=== PATIENT | male | born 1960 | race Caucasian/White ===

== ENCOUNTER 2018-05-26 13:44 | Emergency (ER) | payer OTHER ==
[~2018-05-26] VITALS: Ht 182.9 cm; Wt 79.4 kg
[2018-05-26 14:09] LABS: ABSOLUTE LYMPHOCYTES 1.8 thou/uL (0.8-5.3); ABSOLUTE MONOCYTES 0.5 thou/uL (0.0-1.2); ABSOLUTE NEUTROPHILS 4.4 thou/uL (1.6-8.1); BASOPHILS 0.6 %; EOSINOPHILS 0.6 %; HEMATOCRIT 41.6 % (42.0-52.0); HEMOGLOBIN 14.4 gm/dL (14.0-18.0); LYMPHOCYTES 26.8 %; MCH 29.4 pg (26.0-34.0); MCHC 34.7 g/dL (28.0-37.0); MCV 84.7 fL (80.0-100.0); MONOCYTES 7.7 %; MPV 8.2 fl. (7.2-11.1); NUCLEATED RBCS 0 /100WBC; PLATELET COUNT* 190 thou/uL (150-400); POLYS 64.3 %; RBC 4.91 mil/uL (4.50-6.00); RDW-CV 14.1 % (10.5-14.5); WBC 6.8 thou/uL (4.0-11.0)
[2018-05-26 14:18] LABS: ANION GAP 4 mmol/L (7-16); BUN 14 mg/dL (7-18); CALCIUM 8.3 mg/dL (8.5-10.1); CHLORIDE 105 mmol/L (98-107); CO2 30 mmol/L (21-32); GLUCOSE 109 mg/dL (70-99); POTASSIUM 4.1 mmol/L (3.5-5.1); SODIUM 139 mmol/L (136-145)
[2018-05-26 14:29] LABS: ALBUMIN 3.5 g/dL (3.4-5.0); ALKALINE PHOSPHATASE 77 U/L (46-116); LIPASE 128 U/L (73-393); NT-PRO BRAIN NAT PEPTIDE 32 pg/mL (<300); SGOT 20 U/L (15-37); SGPT 29 U/L (30-65); TOTAL BILIRUBIN 0.4 mg/dL (<0.1-1.0); TOTAL PROTEIN 6.8 g/dL (6.4-8.2); TROPONIN-I LEVEL <0.06 ng/mL (<0.06)
[2018-05-26] MEDS ORDERED: NAPROSYN500 M1 PO (14:36)
[2018-05-26 14:43] VITALS: BP 131/74
--- NOTE | 2018-05-26 14:56 | EKG ---
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
== END 2018-05-26 14:44 | disposition home or self-care (01) ==
LOC: M.ERS 13:44
PROVIDERS: Emergency Medicine
DX: R07.89 Other chest pain (principal)

== ENCOUNTER 2020-02-08 13:34 | Emergency (ER) | payer OTHER ==
[~2020-02-08] VITALS: Ht 182.9 cm; Wt 77.1 kg
[~2020-02-08 13:34] MED LIST: NAPROSYN500 M1 PO
[2020-02-08] MEDS ORDERED: CIPRO250 M2 PO (13:44)
[2020-02-08] MEDS ORDERED: FLAGYL 250 MG250 MG PO (13:45)
[2020-02-08 14:01] LABS: ABSOLUTE BASOPHILS 0.1 thou/uL (0.0-0.2); ABSOLUTE EOSINOPHILS 0.1 thou/uL (0.0-0.7); ABSOLUTE LYMPHOCYTES 1.8 thou/uL (0.8-5.3); ABSOLUTE MONOCYTES 0.7 thou/uL (0.0-1.2); BASOPHILS 1.2 %; EOSINOPHILS 1.1 %; LYMPHOCYTES 20.5 %; MCH 31.5 pg (26.0-34.0); MCHC 35.6 g/dL (28.0-37.0); MCV 88.5 fL (80.0-100.0); MONOCYTES 8.1 %; MPV 8.8 fl. (7.2-11.1); NUCLEATED RBCS 0 /100WBC; PLATELET COUNT* 223 thou/uL (150-400); POLYS 69.1 %; RBC 5.08 mil/uL (4.50-6.00); RDW-CV 12.1 % (10.5-14.5); WBC 8.6 thou/uL (4.0-11.0)
[2020-02-08 14:05] LABS: CALCIUM 8.8 mg/dL (8.5-10.1); POTASSIUM 4.1 mmol/L (3.5-5.1)
[2020-02-08 14:06] LABS: URINE BILIRUBIN NEGATIVE (Negative); URINE BLOOD NEGATIVE (Negative); URINE CLARITY CLEAR; URINE COLOR YELLOW; URINE GLUCOSE-RANDOM NEGATIVE (Negative); URINE KETONES NEGATIVE (Negative); URINE LEUKOCYTES-REFLEX NEGATIVE (Negative); URINE NITRITE-REFLEX NEGATIVE (Negative); URINE PROTEIN NEGATIVE (Negative); URINE UROBILINOGEN 0.2 E.U./dl (0.2-1.0)
[2020-02-08 14:10] LABS: ALBUMIN 3.8 g/dL (3.4-5.0); TOTAL BILIRUBIN 0.4 mg/dL (<0.1-1.0); TOTAL PROTEIN 7.2 g/dL (6.4-8.2)
[2020-02-08] MEDS ORDERED: NORCO 5-325 TA1 EAC1 PO (14:55)
[2020-02-08 15:02] VITALS: BP 145/96
--- NOTE | 2020-02-08 15:35 | EKG ---
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 : 1960 Requested By: Cliff Lantigua Order Number: [id number] MD: Alejandro Durant Measurements Intervals [place] Rate: 74 P: 58 WA: 175 QRS: 22 QRSD: 86 T: 54 QT: 356 QTc: 395 Interpretive Statements Sinus rhythm Baseline wander in lead(s) V1 Compared to ECG 05/26/2018 13:50:07 No significant changes Electronically Signed On 02-08-2020 15:33:49 CDT by Alejandro Durant [email or web address] <ELECTRONICALLY SIGNED> By: Alejandro Durant MD, [facility] 02/08/20 1533 1349 1349 Alejandro Durant MD, [facility] /EPI
== END 2020-02-08 15:02 | disposition home or self-care (01) ==
LOC: M.ERS 13:34
PROVIDERS: Family Medicine
DX: R10.32 Left lower quadrant pain (principal); K58.9 Irritable bowel syndrome, unspecified; Z87.891 Personal history of nicotine dependence

== ENCOUNTER → 2020-08-22 | Outpatient (CLI) | payer OTHER ==
[~2020-08-22] MED LIST changes: +CIPRO250 M2 PO; +FLAGYL 250 MG250 MG PO; +NORCO 5-325 TA1 EAC1 PO
[2020-08-22 14:53] LABS: ABSOLUTE BASOPHILS 0.1 thou/uL (0.0-0.2); ABSOLUTE LYMPHOCYTES 1.5 thou/uL (0.8-5.3); ABSOLUTE MONOCYTES 0.6 thou/uL (0.0-1.2); ABSOLUTE NEUTROPHILS 5.8 thou/uL (1.6-8.1); BASOPHILS 0.8 %; EOSINOPHILS 0.2 %; HEMATOCRIT 46.2 % (42.0-52.0); HEMOGLOBIN 15.9 gm/dL (14.0-18.0); LYMPHOCYTES 18.9 %; MCH 31.1 pg (26.0-34.0); MCHC 34.4 g/dL (28.0-37.0); MCV 90.3 fL (80.0-100.0); MONOCYTES 7.4 %; MPV 8.3 fl. (7.2-11.1); NUCLEATED RBCS 0 /100WBC; PLATELET COUNT* 211 thou/uL (150-400); POLYS 72.7 %; RBC 5.11 mil/uL (4.50-6.00)
[2020-08-22 15:08] LABS: ALBUMIN 4.2 g/dL (3.4-5.0); ALKALINE PHOSPHATASE 81 U/L (46-116); ANION GAP 7 mmol/L (7-16); BUN 14 mg/dL (7-18); CALCIUM 8.7 mg/dL (8.5-10.1); CHLORIDE 103 mmol/L (98-107); CO2 30 mmol/L (21-32); CREATININE 0.9 mg/dL (0.6-1.3); GLUCOSE 97 mg/dL (70-99); POTASSIUM 4.6 mmol/L (3.5-5.1); SGOT 25 U/L (15-37); SGPT 29 U/L (30-65); SODIUM 140 mmol/L (136-145); TOTAL BILIRUBIN 0.7 mg/dL (<0.1-1.0); TOTAL PROTEIN 7.7 g/dL (6.4-8.2)
[2020-08-22 15:22] LABS: TROPONIN-I LEVEL <0.06 ng/mL (<0.06)
== END ==
LOC: M.LAB 14:23
PROVIDERS: ATTEND Internal Medicine
DX: R42 Dizziness and giddiness (principal); R06.02 Shortness of breath

== ENCOUNTER 2020-08-29 15:49 | Inpatient (IN) | payer OTHER ==
[~2020-08-29] VITALS: Ht 193 cm; Wt 81.9 kg
--- NOTE | ~2020-08-29 | CON ---
[address] [address] CONSULTATION Name: LORENA MONTES Room: [address] IN .R.#: [id number] Admission: 08/29/20 Attend Phys: Raquel Mtz MD Discharge: Date of : 64 Report #: [id number] THIS REPORT FOR: //name// cc: Aime Ruiz Meng, Zhao ~ DATE OF SERVICE: 08/30/2020 Please note at the time of this dictation, the patient was seen and physically examined by myself. REASON FOR CONSULTATION: Diverticulitis with microperforation. HISTORY OF PRESENT ILLNESS: This is a 59-year-old male who presented to the Emergency Room with having severe abdominal pain. He states he first had some discomfort about 2 days ago with some distention and then he had 3 additional episodes, he states in the past year of diverticulitis in which he was treated by his PCP at that particular time. He states today symptoms were significantly worse, prompting him to come in for further treatment. He denied any fever or chills; however, he did have some emesis and some nausea on the day of admission. He is feeling much better today and just doing ice chips, but still having significant amount of discomfort at this time. The patient states he had a colonoscopy done last year, which was essentially normal. ALLERGIES: No known drug allergies. MEDICATIONS FROM HOME: None. PAST MEDICAL HISTORY: History of diverticulitis in the past, history of gallstones, irritable bowel syndrome, and herniated disk in his neck. PAST SURGICAL HISTORY: Cholecystectomy. FAMILY HISTORY: Negative for any GI or female cancers. SOCIAL HISTORY: Quit smoking a year ago. Alcohol is only socially. Denies any illegal drug use. REVIEW OF SYSTEMS: Twelve-point review of systems is essentially negative except what is mentioned in the HPI. PHYSICAL EXAMINATION HEART: Regular rate and rhythm. LUNGS: Clear. ABDOMEN: Soft, positive bowel sounds in all 4 [place] [address] CONSULTATION Name: LORENA MONTES Room: [address] IN [facility]#: [id number] Admission: 08/29/20 Attend Phys: Raquel Mtz MD Discharge: Date of : 64 Report #: [id number] in the right lower and some in the left lower quadrant to palpation. LABORATORY DATA: Hemoglobin on admission was 15.1, he is down to 13.3; white count was 11.9 on admission, he is down to 8.7; platelets 148. GFR is 69. On admission, his LFTs were essentially normal and today total bili is 3.4, alk phos is 89, ALT is 103 and AST is 144. Lipase is normal at 84. PT is 10. INR is 0.9. Acute hepatitis panel is pending. CT of the abdomen and pelvis shows previous cholecystectomy. Liver appears normal. Spleen is normal. Pancreas is normal. Bowel shows diverticulosis of the descending and sigmoid colon with moderate circumferential wall thickening with pericolonic fat stranding of the upper and mid sigmoid colon compatible with diverticulitis with a few droplets of adjacent free air noted in the pelvis with microperforation. IMPRESSION: 1. Diverticulitis with microperforation. 2. Elevated LFTs. 3. Abdominal pain. 4. Nausea, vomiting. PLAN: 1. Obtain an abdominal ultrasound for elevation of LFTs. 2. Continue his antibiotics and fluids. 3. Recheck labs in the a.m., PT/INR and LFTs. 4. Acute hepatitis panel is pending. 5. We will consult dietary for low residue diet. 6. The patient will need an office visit in [address] at that time to assessment of resolution of his diverticulitis before scheduling him for a colonoscopy for inking. Thank you for allowing us to participate in this patient's care. Please do not hesitate to call with any questions in regard to this consult. By: 1147 1224Puneet Sierra MD /cris
[2020-08-29 15:54] VITALS: BP 144/101
[2020-08-29 16:14] LABS: ABSOLUTE BASOPHILS 0.1 thou/uL (0.0-0.2); ABSOLUTE LYMPHOCYTES 1.3 thou/uL (0.8-5.3); ABSOLUTE MONOCYTES 0.8 thou/uL (0.0-1.2); ABSOLUTE NEUTROPHILS 9.3 thou/uL (1.6-8.1); BASOPHILS 0.6 %; EOSINOPHILS 0.3 %; HEMATOCRIT 43.7 % (42.0-52.0); HEMOGLOBIN 15.1 gm/dL (14.0-18.0); LYMPHOCYTES 11.5 %; MCH 30.7 pg (26.0-34.0); MCHC 34.5 g/dL (28.0-37.0); MCV 88.8 fL (80.0-100.0); MONOCYTES 6.8 %; MPV 8.7 fl. (7.2-11.1); NUCLEATED RBCS 0 /100WBC; PLATELET COUNT* 179 thou/uL (150-400); POLYS 80.8 %; RBC 4.92 mil/uL (4.50-6.00); RDW-CV 12.6 % (10.5-14.5); WBC 11.5 thou/uL (4.0-11.0)
[2020-08-29 16:22] LABS: CALCIUM 8.7 mg/dL (8.5-10.1); CREATININE 1.1 mg/dL (0.6-1.3); POTASSIUM 3.5 mmol/L (3.5-5.1)
[2020-08-29 16:24] LABS: INR 0.9
[2020-08-29 16:27] LABS: ALBUMIN 3.7 g/dL (3.4-5.0); TOTAL BILIRUBIN 0.6 mg/dL (<0.1-1.0); TOTAL PROTEIN 7.4 g/dL (6.4-8.2)
[2020-08-29 20:25] VITALS: BP 125/68
[2020-08-29 20:30] VITALS: BP 128/80
[2020-08-29 21:07] LABS: URINE BILIRUBIN NEGATIVE (Negative); URINE BLOOD NEGATIVE (Negative); URINE CLARITY CLEAR; URINE COLOR YELLOW; URINE GLUCOSE-RANDOM NEGATIVE (Negative); URINE KETONES NEGATIVE (Negative); URINE LEUKOCYTES-REFLEX NEGATIVE (Negative); URINE NITRITE-REFLEX NEGATIVE (Negative); URINE PROTEIN NEGATIVE (Negative); URINE UROBILINOGEN 0.2 E.U./dl (0.2-1.0)
[2020-08-30] VITALS: BP 129/74
[2020-08-30 04:00] VITALS: BP 101/50
[2020-08-30 04:44] LABS: HEMATOCRIT 38.6 % (42.0-52.0); HEMOGLOBIN 13.4 gm/dL (14.0-18.0); MCH 30.8 pg (26.0-34.0); MCHC 34.8 g/dL (28.0-37.0); MCV 88.6 fL (80.0-100.0); MPV 9.2 fl. (7.2-11.1); RBC 4.35 mil/uL (4.50-6.00); RDW-CV 12.7 % (10.5-14.5); WBC 8.7 thou/uL (4.0-11.0)
[2020-08-30 04:47] LABS: ABSOLUTE LYMPHOCYTES 1.3 thou/uL (0.8-5.3); ABSOLUTE MONOCYTES 0.6 thou/uL (0.0-1.2); ABSOLUTE NEUTROPHILS 6.7 thou/uL (1.6-8.1); BASOPHILS 0.3 %; EOSINOPHILS 0.2 %; HEMATOCRIT 38.4 % (42.0-52.0); HEMOGLOBIN 13.3 gm/dL (14.0-18.0); LYMPHOCYTES 15.2 %; MCH 30.7 pg (26.0-34.0); MCHC 34.7 g/dL (28.0-37.0); MCV 88.6 fL (80.0-100.0); MONOCYTES 6.9 %; MPV 8.9 fl. (7.2-11.1); NUCLEATED RBCS 0 /100WBC; PLATELET COUNT* 148 thou/uL (150-400); POLYS 77.4 %; RBC 4.33 mil/uL (4.50-6.00); WBC 8.7 thou/uL (4.0-11.0)
[2020-08-30 05:01] LABS: ALBUMIN 2.9 g/dL (3.4-5.0); CALCIUM 8.3 mg/dL (8.5-10.1); CREATININE 1.1 mg/dL (0.6-1.3); POTASSIUM 3.6 mmol/L (3.5-5.1); TOTAL BILIRUBIN 3.4 mg/dL (<0.1-1.0); TOTAL PROTEIN 5.9 g/dL (6.4-8.2)
--- NOTE | 2020-08-30 09:10 | EKG ---
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: [facility] : 1960 Requested By: Cliff Lantigua Order Number: [id number] MD: Chase Saucedo Measurements Intervals [place] Rate: 84 P: 40 MO: 153 QRS: 40 QRSD: 92 T: 56 QT: 362 QTc: 428 Interpretive Statements Sinus rhythm Compared to ECG 02/08/2020 13:49:45 No significant changes Electronically Signed On 08-30-2020 9:09:47 ATHLETIC INSTRUCTOR by Chase Saucedo [email or web address] <ELECTRONICALLY SIGNED> By: Chase Saucedo MD, [facility] 08/30/20 0909 1603 1603 Chase Saucedo MD, [facility] /EPI
[2020-08-30 12:00] VITALS: BP 116/71
[2020-08-30 12:55] LABS: INR 1.1; PROTIME 11.3 Seconds (9.20-11.50)
[2020-08-30 12:57] LABS: ALBUMIN 2.7 g/dL (3.4-5.0); CALCIUM 7.9 mg/dL (8.5-10.1); CREATININE 0.9 mg/dL (0.6-1.3); POTASSIUM 3.6 mmol/L (3.5-5.1); TOTAL BILIRUBIN 3.9 mg/dL (<0.1-1.0); TOTAL PROTEIN 5.9 g/dL (6.4-8.2)
[2020-08-30 20:00] VITALS: BP 134/81
[2020-08-31 02:06] LABS: HEPATITIS B SURFACE AG Negative (Negative)
[2020-08-31 04:00] VITALS: BP 139/79
[2020-08-31 04:54] LABS: HEMATOCRIT 38.4 % (42.0-52.0); HEMOGLOBIN 13.2 gm/dL (14.0-18.0); MCH 30.9 pg (26.0-34.0); MCHC 34.3 g/dL (28.0-37.0); MCV 90.1 fL (80.0-100.0); MPV 9.6 fl. (7.2-11.1); RBC 4.26 mil/uL (4.50-6.00); RDW-CV 12.8 % (10.5-14.5); WBC 6.9 thou/uL (4.0-11.0)
[2020-08-31 05:09] LABS: ALBUMIN 2.8 g/dL (3.4-5.0); CREATININE 0.9 mg/dL (0.6-1.3); MAGNESIUM 1.7 mg/dL (1.8-2.4); POTASSIUM 3.6 mmol/L (3.5-5.1); TOTAL BILIRUBIN 4.7 mg/dL (<0.1-1.0); TOTAL PROTEIN 6.3 g/dL (6.4-8.2)
[2020-08-31 07:15] VITALS: BP 132/70
[2020-08-31 16:00] VITALS: BP 142/87
[2020-09-01 04:00] VITALS: BP 130/81
[2020-09-01 04:04] VITALS: BP 117/69
[2020-09-01 04:20] LABS: ABSOLUTE EOSINOPHILS 0.2 thou/uL (0.0-0.7); ABSOLUTE LYMPHOCYTES 1.1 thou/uL (0.8-5.3); ABSOLUTE MONOCYTES 0.7 thou/uL (0.0-1.2); ABSOLUTE NEUTROPHILS 5.5 thou/uL (1.6-8.1); BASOPHILS 0.3 %; HEMATOCRIT 37.3 % (42.0-52.0); LYMPHOCYTES 14.6 %; MCH 31.1 pg (26.0-34.0); MCHC 34.9 g/dL (28.0-37.0); MCV 89.2 fL (80.0-100.0); MPV 8.9 fl. (7.2-11.1); NUCLEATED RBCS 0 /100WBC; PLATELET COUNT* 159 thou/uL (150-400); POLYS 74.1 %; RBC 4.18 mil/uL (4.50-6.00); RDW-CV 12.6 % (10.5-14.5); WBC 7.4 thou/uL (4.0-11.0)
[2020-09-01 04:38] LABS: ALBUMIN 2.6 g/dL (3.4-5.0); CALCIUM 8.6 mg/dL (8.5-10.1); CREATININE 0.8 mg/dL (0.6-1.3); MAGNESIUM 1.8 mg/dL (1.8-2.4); PHOSPHORUS* 2.5 mg/dL (2.5-4.9); POTASSIUM 3.6 mmol/L (3.5-5.1)
[2020-09-01 08:00] VITALS: BP 155/86
[2020-09-01 12:57] VITALS: BP 155/86
== END 2020-09-01 13:05 | disposition home or self-care (01) | DRG 871 ==
LOC: M.ERS 15:49 → M.2W 17:25 → M.TBA-ER 17:25 → M.2W 20:41
PROVIDERS: Family Medicine; Nurse Practitioner Adult Health; Surgery; ADMIT Internal Medicine; ATTEND Internal Medicine
DX: A41.9 Sepsis, unspecified organism (principal); K83.1 Obstruction of bile duct; K57.20 Diverticulitis of large intestine with perforation and abscess without bleeding; E44.1 Mild protein-calorie malnutrition; K58.9 Irritable bowel syndrome, unspecified; E80.6 Other disorders of bilirubin metabolism; Z20.828 Contact with and (suspected) exposure to other viral communicable diseases; Z68.22 Body mass index [BMI] 22.0-22.9, adult; Z79.899 Other long term (current) drug therapy; Z90.49 Acquired absence of other specified parts of digestive tract; Z87.891 Personal history of nicotine dependence

== ENCOUNTER 2020-09-08 13:47 | Emergency (ER) | payer OTHER ==
[~2020-09-08] VITALS: Ht 182.9 cm; Wt 77.6 kg
[2020-09-08] MEDS ORDERED: AUGMENTIN 875-1 EACH PO ×2 (14:22→17:26)
[2020-09-08 14:48] LABS: ABSOLUTE BASOPHILS 0.1 thou/uL (0.0-0.2); ABSOLUTE EOSINOPHILS 0.3 thou/uL (0.0-0.7); ABSOLUTE LYMPHOCYTES 1.4 thou/uL (0.8-5.3); ABSOLUTE NEUTROPHILS 8.3 thou/uL (1.6-8.1); BASOPHILS 0.6 %; EOSINOPHILS 2.7 %; HEMATOCRIT 45.1 % (42.0-52.0); HEMOGLOBIN 15.5 gm/dL (14.0-18.0); LYMPHOCYTES 12.5 %; MCH 30.6 pg (26.0-34.0); MCHC 34.4 g/dL (28.0-37.0); MCV 88.9 fL (80.0-100.0); MONOCYTES 8.8 %; MPV 8.1 fl. (7.2-11.1); NUCLEATED RBCS 0 /100WBC; PLATELET COUNT* 327 thou/uL (150-400); POLYS 75.4 %; RBC 5.08 mil/uL (4.50-6.00); RDW-CV 12.4 % (10.5-14.5)
[2020-09-08 14:55] LABS: CALCIUM 9.3 mg/dL (8.5-10.1); POTASSIUM 3.9 mmol/L (3.5-5.1)
[2020-09-08 14:59] LABS: ALBUMIN 3.5 g/dL (3.4-5.0); TOTAL BILIRUBIN 0.6 mg/dL (<0.1-1.0)
[2020-09-08 16:37] LABS: URINE BILIRUBIN NEGATIVE (Negative); URINE BLOOD NEGATIVE (Negative); URINE CLARITY CLEAR; URINE COLOR YELLOW; URINE GLUCOSE-RANDOM NEGATIVE (Negative); URINE KETONES NEGATIVE (Negative); URINE LEUKOCYTES-REFLEX NEGATIVE (Negative); URINE NITRITE-REFLEX NEGATIVE (Negative); URINE PROTEIN NEGATIVE (Negative); URINE SPECIFIC GRAVITY <= 1.005 (1.005-1.030); URINE UROBILINOGEN 0.2 E.U./dl (0.2-1.0)
[2020-09-08] MEDS ORDERED: PERCOCET 5-3251 EACH PO (16:37)
[2020-09-08 18:10] VITALS: BP 135/73
--- NOTE | 2020-09-11 15:02 | EKG ---
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1960 Requested By: Cliff Lantigua Order Number: [id number] MD: Alejandro Durant Measurements Intervals [place] Rate: 89 P: 73 ID: 160 QRS: 38 QRSD: 91 T: 59 QT: 356 QTc: 434 Interpretive Statements Sinus rhythm Compared to ECG 08/29/2020 16:03:37 No significant changes Electronically Signed On 09-11-2020 15:01:54 MATERIAL DAMAGE APPRAISER by Alejandro Durant [email or web address] <ELECTRONICALLY SIGNED> By: Alejandro Durant MD, [facility] 09/11/20 1501 1428 142 Alejandro Durant MD, [facility] /EPI
== END 2020-09-08 18:10 | disposition home or self-care (01) ==
LOC: M.ERS 13:47
PROVIDERS: Family Medicine
DX: K57.20 Diverticulitis of large intestine with perforation and abscess without bleeding (principal); Z20.828 Contact with and (suspected) exposure to other viral communicable diseases; K58.9 Irritable bowel syndrome, unspecified; Z87.891 Personal history of nicotine dependence

== ENCOUNTER → 2020-09-28 | Outpatient (CLI) | payer OTHER ==
[~2020-09-28] MED LIST changes: +AUGMENTIN 875-1 EACH PO; +PERCOCET 5-3251 EACH PO
== END ==
LOC: M.CT 09-27 15:00
PROVIDERS: ATTEND Nurse Practitioner Adult Health
DX: K57.92 Diverticulitis of intestine, part unspecified, without perforation or abscess without bleeding (principal); R19.5 Other fecal abnormalities; I70.0 Atherosclerosis of aorta

== ENCOUNTER 2021-01-22 14:14 | Emergency (ER) | payer OTHER ==
[~2021-01-22] VITALS: Ht 182.9 cm; Wt 77.1 kg
[2021-01-22 14:33] LABS: ABSOLUTE BASOPHILS 0.1 thou/uL (0.0-0.2); ABSOLUTE LYMPHOCYTES 2.1 thou/uL (0.8-5.3); ABSOLUTE MONOCYTES 0.8 thou/uL (0.0-1.2); ABSOLUTE NEUTROPHILS 6.5 thou/uL (1.6-8.1); BASOPHILS 0.7 %; EOSINOPHILS 0.2 %; HEMATOCRIT 43.9 % (42.0-52.0); HEMOGLOBIN 15.1 gm/dL (14.0-18.0); MCH 29.7 pg (26.0-34.0); MCHC 34.3 g/dL (28.0-37.0); MCV 86.5 fL (80.0-100.0); MONOCYTES 8.3 %; MPV 8.1 fl. (7.2-11.1); NUCLEATED RBCS 0 /100WBC; PLATELET COUNT* 197 thou/uL (150-400); POLYS 68.8 %; RBC 5.08 mil/uL (4.50-6.00); WBC 9.4 thou/uL (4.0-11.0)
[2021-01-22 14:45] LABS: CALCIUM 9.4 mg/dL (8.5-10.1); CREATININE 0.9 mg/dL (0.6-1.3); POTASSIUM 4.2 mmol/L (3.5-5.1)
[2021-01-22 14:48] LABS: APTT 28.2 Seconds (25.0-31.3); PROTIME 10.2 Seconds (9.20-11.50)
[2021-01-22 14:57] LABS: CK-MB MASS 0.6 ng/mL (<0.5-3.6); TOTAL BILIRUBIN 0.4 mg/dL (<0.1-1.0); TOTAL PROTEIN 7.4 g/dL (6.4-8.2)
[2021-01-22 15:25] VITALS: BP 142/82
--- NOTE | 2021-01-23 14:03 | EKG ---
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[place] : 1960 Requested By: Cliff Lantigua Order Number: [id number] MD: Chase Saucedo Measurements Intervals [place] Rate: 76 P: 68 NM: 171 QRS: 50 QRSD: 90 T: 68 QT: 364 QTc: 410 Interpretive Statements Sinus rhythm Baseline wander in lead(s) V6 Compared to ECG 09/08/2020 14:28:45 No significant changes Electronically Signed On 01-23-2021 14:03:46 CDT by Chase Saucedo [email or web address] <ELECTRONICALLY SIGNED> By: Chase Saucedo MD, [facility] 01/23/21 1403 1420 1420 Chase Saucedo MD, [facility] /EPI
== END 2021-01-22 15:25 | disposition home or self-care (01) ==
LOC: M.ERS 14:14
PROVIDERS: Family Medicine
DX: R07.89 Other chest pain (principal); K58.9 Irritable bowel syndrome, unspecified; Z87.891 Personal history of nicotine dependence

== ENCOUNTER 2021-04-04 05:52 | Inpatient (IN) | payer OTHER ==
[~2021-04-04] VITALS: Ht 180.3 cm; Wt 77.1 kg
--- NOTE | ~2021-04-04 | H ---
[address] [address] HISTORY AND PHYSICAL Name: LORENA MONTES Room: [address] IN .R.#: [id number] Admission: 04/04/21 Attend Phys: Jack Zelaya Discharge: 04/08/21 Date of : 64 Report #: [id number] THIS REPORT FOR: cc: Joseph Salomon MD, Meng MD [facility],Medical Records Staff ~ Please refer to the History and Physical performed in the physician's office. By: 1512Medical Records Staff KIMBERLEE /LISETH
[2021-04-04 06:15] VITALS: BP 141/86
[2021-04-04 06:43] LABS: HEMATOCRIT 41.8 % (42.0-52.0); HEMOGLOBIN 15.1 gm/dL (14.0-18.0); MCH 31.9 pg (26.0-34.0); MCHC 36.2 g/dL (28.0-37.0); MCV 88.2 fL (80.0-100.0); MPV 8.4 fl. (7.2-11.1); RBC 4.74 mil/uL (4.50-6.00); RDW-CV 12.5 % (10.5-14.5); WBC 7.9 thou/uL (4.0-11.0)
[2021-04-04 06:51] LABS: CALCIUM 8.7 mg/dL (8.5-10.1); CREATININE 0.9 mg/dL (0.6-1.3); POTASSIUM 3.9 mmol/L (3.5-5.1)
[2021-04-04 06:55] LABS: ALBUMIN 3.7 g/dL (3.4-5.0); TOTAL BILIRUBIN 1.1 mg/dL (<0.1-1.0); TOTAL PROTEIN 7.3 g/dL (6.4-8.2)
--- NOTE | 2021-04-04 09:25 | EKG ---
[place] [address] ELECTROCARDIOGRAM REPORT Name: LORENA MONTES Room: [place] [address] ADM IN M.R.#: [id number] Admission: 04/04/21 Attend Phys: Danilo Salinas Discharge: Date of : 64 Date of Service: 04/04/[address] Report #: [id number] THIS REPORT FOR: //name// [facility] Test Date: 2021-04-04 Test Time: 07:13:39 Pat Name: LORENA MONTES Department: Room: [place] [address] Gender: M Chief Strategy Officer: : 1960 Requested By: Danilo Salinas Order Number: [id number] Kenna MD: Chase Saucedo Measurements Intervals [place] Rate: 68 P: 51 ID: 178 QRS: 18 QRSD: 91 T: 51 QT: 403 QTc: 429 Interpretive Statements Sinus rhythm Compared to ECG 01/22/2021 14:20:28 No significant changes Electronically Signed On 04-04-2021 9:25:12 CDT by Chase Saucedo [email or web address] <ELECTRONICALLY SIGNED> By: Chase Saucedo MD, [facility] 04/04/21 0925 2 2 Chase Saucedo MD, [facility] /EPI
[2021-04-04 18:30] VITALS: BP 143/87
--- NOTE | 2021-04-04 19:33 | NUR ---
PATIENT ARRIVED FROM PACU AT 1830. PATIENT SETTLED TO ROOM. DAUGHTER AT BEDSIDE. PATIENT GIVEN FENTANYL PRIOR TO TRANSFER. SCHEDULED TORADOL GIVEN. PATIENT HAS ICE PACK TO ABDOMEN. LAP SITES APPROXIMATED WELL WITH DERMABOND. PATIENT HAS IV FLUIDS INFUSING ORDERED. FOY CATHETER IN PLACE, PATIENT DENIES ANY NEEDS AT THIS TIME. CALL LIGHT WITHIN REACH.
[2021-04-04 20:00] VITALS: BP 118/77
[2021-04-05] VITALS (7 sets, daily range): BP systolic 99–128; BP diastolic 49–72
--- NOTE | 2021-04-05 04:01 | NUR ---
PT A&O X 4. VSS ON 3L WITH CONTINUOUS PULSE OX MONITOR. PAIN MANAGED WITH MORPHINE AND PERCOCET. DENIED N/V. LAP SITES C/D/I. HEATING PAD GIVEN PER PT REQUEST. FOY IN PLACE. IVF INFUISING ORDERED. CALL LIGHT WITHIN REACH. WILL CONTINUE TO MONITOR.
[2021-04-05 08:58] LABS: ABSOLUTE LYMPHOCYTES 1.1 thou/uL (0.8-5.3); ABSOLUTE NEUTROPHILS 8.4 thou/uL (1.6-8.1); BASOPHILS 0.2 %; HEMATOCRIT 35.9 % (42.0-52.0); LYMPHOCYTES 10.2 %; MCH 31.1 pg (26.0-34.0); MCV 88.8 fL (80.0-100.0); MONOCYTES 9.8 %; MPV 8.7 fl. (7.2-11.1); NUCLEATED RBCS 0 /100WBC; PLATELET COUNT* 156 thou/uL (150-400); POLYS 79.8 %; RBC 4.04 mil/uL (4.50-6.00); RDW-CV 12.5 % (10.5-14.5); WBC 10.5 thou/uL (4.0-11.0)
[2021-04-05 09:00] LABS: HEMOGLOBIN 12.6 gm/dL (14.0-18.0)
[2021-04-05 09:20] LABS: ALBUMIN 2.8 g/dL (3.4-5.0); CALCIUM 7.9 mg/dL (8.5-10.1); CREATININE 0.9 mg/dL (0.6-1.3); POTASSIUM 4.2 mmol/L (3.5-5.1); TOTAL BILIRUBIN 0.7 mg/dL (<0.1-1.0); TOTAL PROTEIN 5.9 g/dL (6.4-8.2)
--- NOTE | 2021-04-05 14:10 | NUR ---
Pt is A&O. Resides at home. Independent. No DME. No hx HH or SNF. Goal is home at dc. Surgery following.
--- NOTE | 2021-04-05 16:10 | OP ---
[facility] [address] [place] [address] OPERATIVE REPORT Name: LORENA MONTES Room: [address] IN M.R.#: [id number] Admission: 04/04/21 Attend Phys: Jack Zelaya Discharge: Date of : 64 Report #: [id number] THIS REPORT FOR: cc: Joseph Salomon MD, Meng MD Gazzetta, Joshua D. DO ~ DOC #: [id number] Danilo Salinas DO DATE OF SURGERY: 04/04/2021 SURGEON: Danilo Salinas DO. WEB CONTENT & SOCIAL MEDIA MANAGER: Dr. Jeffrey Garcia. PREOPERATIVE DIAGNOSIS: Chronic diverticulitis. POSTOPERATIVE DIAGNOSIS: Chronic diverticulitis. PROCEDURES PERFORMED: Laparoscopic partial sigmoidectomy, laparoscopic partial proctectomy, colorectal anastomosis, takedown of the splenic flexure. INDICATIONS: The patient is a 60-year-old male who was previously known to us from multiple hospitalizations and office visits for chronic diverticulitis. We discussed the risks, benefits and alternatives to surgery. Risks include bleeding, infection and damage to nearby structures including the bowel, bladder, ureters, iliacs. Other risks include hernia formation, anastomotic leak, chronic pain. The patient voiced complete understanding and elected to proceed with surgery. OPERATIVE DESCRIPTION: The patient was taken to the operating theater and placed in the supine position. Bilateral SCDs were placed and preoperative antibiotics were given. General anesthesia was induced without complication. The patient was then placed in a lithotomy position. Timeout was performed and all were in agreement. The patient's abdomen was prepped and draped in the standard sterile fashion. We began by making a supraumbilical vertical midline incision using 11 blade scalpel. Dissection was carried down to the midline fascia using S retractors and electrocautery. Midline fascia was scored and elevated into the surgical field using Pamela clamps. The abdomen was then entered using a hemostat, 0 Vicryl stay sutures were placed on either edge of the fascia and Reyan trocar was introduced. The abdomen was insufflated to 15 mmHg. Next, right upper and right lower quadrant ports were placed under direct visualization. These were 5 mm ports. Next, a left lower quadrant port was placed under direct visualization. This was a 5 mm port. The sigmoid colon was stuck to the pelvic sidewall at the point of the preperitoneal gonadal vessels, just inferior to the inguinal canal. The colon was medialized using [place] [address] OPERATIVE REPORT Name: LORENA MONTES Room: [address] IN ..#: [id number] Admission: 04/04/21 Attend Phys: Jack Zelaya Discharge: Date of : 64 Report #: [id number] white line of Toldt was taken down from the diverticular disease cephalad towards the spleen. Next, the transverse colon was elevated, the stomach was elevated, and the lesser sac was entered using the LigaSure device. Once the lesser sac was entered, this plane was continued towards the spleen to meet our other more lateral dissection plane. The splenocolic ligament was taken down. The transverse colonic and descending colonic mesenteries were scored with electrocautery. Mobilization of the splenic flexure was complete. Dissection was then carried at the point of the diverticular disease at the distal sigmoid and proximal rectum. Proximal and distal tattoos were appreciated. The distal most tattoo was near the peritoneal reflection of the rectum. Careful dissection of the colon off of the preeritoneal surfaces and retroperitoneal surfaces near the inguinal canal and inferior took place. This was done successfully using hook electrocautery and ligasure dissection. Dissection was carried down along the lateral aspect of the mesorectum to free up the upper rectum. This was done on both sides of the rectum. Next, a mesenteric window at the level of the rectum, near the tatoo, was created using LigaSure device. An Endo-FRAN 60 load was placed through the right lower quadrant trocar, which had been upsized to a 12 mm trocar. This was fired across the rectum. This did not completely fire across the rectum, so a second load was used. At this point, it appeared that there was a small dog ear at the staple line, so the staple line was elevated and a new transection point was chosen just distal to this. A 60 FRAN stapler was used to come across the rectum. This was done successfully. The mesentery of the upper rectum and sigmoid was then ligated using a LigaSure device. Next, the midline trocar was removed and the incision was opened to approximately 4 cm. An Luis retractor was placed and the transected bowel was extracorpealized. Endo-FRAN device was stapled across the colon at the proximal tatto. The specimen was removed and sent for pathology. Next, the staple line was removed using the cut function on the electrocautery pencil. The colon was then dilated using rectal dilators to size 28. An anvil was then placed. This was an Ethicon 29 anvil for a 29 stapler. This was sutured into place using a pursestring, this was #1 PDS. Next, the colon was placed back into the abdomen and the Luis retractor cap was placed. The abdomen was reinsufflated. The anvil was brought down to the rectal staple line. There was no tension. The rectum was then dilated using rectal dilators up to a size 28. A [address] [address] OPERATIVE REPORT Name: LORENA MONTES Room: [address] IN [employer].#: [id number] Admission: 04/04/21 Attend Phys: Jack Zelaya Discharge: Date of : 64 Report #: [id number] powered stapler was then placed to the staple line. The spike was advanced. This extended just above the staple line, in the middle of the transected rectum . The anvil was attached. There was no twisting in the colon. The stapler was closed and attempted to be fired. The mechanism did not work. The stapler was then opened, detached from the anvil and the spike was closed and removed from the rectum. Due to the hole in the rectum, we elected to dissect the rectum further down to the peritoneal reflection and an Endo-FRAN stapler was used to come across the rectum, just distal to the prior staple line and hole. Next, a new EEA stapler was placed within the rectum and up to the staple line. The spike was advanced. The spike exited just inferior to the new staple line. The anvil was reattached to the spike. The stapler was closed and fired. Stapler was then removed. A leak test was performed. The pelvis was filled with saline. The rectum was insufflated, air could be seen going past the anastomosis and filling the rectum and distal colon. There were no bubble seen. Next, all specimens were removed from the abdomen. The abdomen was hemostatic. All trocars were removed under direct visualization. The Luis retractor was removed. Midline fascia was closed using a #1 PDS suture in a running fashion. The 12 port in the right lower quadrant fascia was closed using a simple interrupted stitch of 0 Vicryl. A 3-0 Vicryl was then used in the midline in an interrupted inverted fashion and in the right lower quadrant port. All wounds were closed with Monocryl in the subcuticular plane. All wounds were dressed with Dermabond. This concluded the procedure. All sponge, needle and instrument counts were correct x2. COMPLICATIONS: None. FINDINGS: chronic diverticular disease SPECIMEN: specimen, partial sigmoid and partial rectum, anastomotic rings and staple lines. ANESTHESIA: General endotracheal anesthesia. ESTIMATED BLOOD LOSS: 50 mL. DRAINS: None. DISPOSITION: The patient was extubated successfully in the operating theater and taken to PACU in stable condition. DO REMA Zelaya/[place] [address] OPERATIVE REPORT Name: LORENA MONTES Room: [address] [place] [facility]#: [id number] Admission: 04/04/21 Attend Phys: Jack Zelaya Discharge: Date of : 64 Report #: [id number] <ELECTRONICALLY SIGNED> By: Danilo Salinas DO 04/05/21 1610 2003 [id number] Salinas DO /
--- NOTE | 2021-04-05 17:34 | NUR ---
PATIENT RESTING IN BED. PATIENT HAS COMPLAINTS OF ABDOMINAL PAIN, TREATED ADEQUATELY WITH MEDICATION. PATIENT IS TOLERATING CLEAR LIQUIDS. PATIENT HAS FOY CATHETER IN PLACE. PATIENT HAS NOT BEEN OUT OF BED. ABDOMINAL INCISION DRY, APPROXIMATED WELL. PATIENT DENIES ANY NEEDS AT THIS TIME. CALL LIGHT WITHIN REACH.
[2021-04-06 04:00] VITALS: BP 128/76
[2021-04-06 04:12] LABS: ABSOLUTE EOSINOPHILS 0.1 thou/uL (0.0-0.7); ABSOLUTE LYMPHOCYTES 1.8 thou/uL (0.8-5.3); ABSOLUTE MONOCYTES 0.8 thou/uL (0.0-1.2); ABSOLUTE NEUTROPHILS 5.3 thou/uL (1.6-8.1); BASOPHILS 0.2 %; EOSINOPHILS 0.7 %; HEMATOCRIT 32.6 % (42.0-52.0); HEMOGLOBIN 11.6 gm/dL (14.0-18.0); LYMPHOCYTES 22.3 %; MCH 31.7 pg (26.0-34.0); MCHC 35.4 g/dL (28.0-37.0); MCV 89.6 fL (80.0-100.0); MONOCYTES 9.5 %; NUCLEATED RBCS 0 /100WBC; PLATELET COUNT* 125 thou/uL (150-400); POLYS 67.3 %; RBC 3.64 mil/uL (4.50-6.00); RDW-CV 12.5 % (10.5-14.5); WBC 7.9 thou/uL (4.0-11.0)
[2021-04-06 04:26] LABS: ALBUMIN 2.7 g/dL (3.4-5.0); CREATININE 0.8 mg/dL (0.6-1.3); TOTAL BILIRUBIN 0.6 mg/dL (<0.1-1.0); TOTAL PROTEIN 5.8 g/dL (6.4-8.2)
--- NOTE | 2021-04-06 04:45 | NUR ---
Alert and oriented x 4. He has 4 lapsites to his abdomen and they are approximated with dermabond. He has bowel sounds x 4 but hasn't passed gas. He did have a good amount of urine output,this am dixon cath was DC'd. He has had scheduled tylenol and ibuprofen and also PRN dilaudid. He does rate his abdominal pain 5-7/10. His vitals are stable. He has slept well.
--- NOTE | 2021-04-06 12:56 | NUR ---
Pt up ambulating the halls. Full liquid diet. Pain control. Surgery following. Goal home at mo, no needs anticipated.
[2021-04-07 05:18] LABS: ABSOLUTE EOSINOPHILS 0.1 thou/uL (0.0-0.7); ABSOLUTE LYMPHOCYTES 1.7 thou/uL (0.8-5.3); ABSOLUTE MONOCYTES 0.6 thou/uL (0.0-1.2); ABSOLUTE NEUTROPHILS 4.9 thou/uL (1.6-8.1); BASOPHILS 0.6 %; EOSINOPHILS 1.8 %; HEMATOCRIT 35.1 % (42.0-52.0); HEMOGLOBIN 12.5 gm/dL (14.0-18.0); LYMPHOCYTES 22.7 %; MCH 31.7 pg (26.0-34.0); MCHC 35.6 g/dL (28.0-37.0); MCV 88.9 fL (80.0-100.0); MONOCYTES 7.8 %; NUCLEATED RBCS 0 /100WBC; PLATELET COUNT* 147 thou/uL (150-400); POLYS 67.1 %; RBC 3.95 mil/uL (4.50-6.00); RDW-CV 12.4 % (10.5-14.5); WBC 7.3 thou/uL (4.0-11.0)
[2021-04-07 06:10] LABS: ALBUMIN 2.8 g/dL (3.4-5.0); CALCIUM 8.5 mg/dL (8.5-10.1); CREATININE 0.8 mg/dL (0.6-1.3); MAGNESIUM 1.8 mg/dL (1.8-2.4); PHOSPHORUS* 3.1 mg/dL (2.5-4.9); POTASSIUM 3.6 mmol/L (3.5-5.1); TOTAL BILIRUBIN 0.7 mg/dL (<0.1-1.0); TOTAL PROTEIN 6.3 g/dL (6.4-8.2)
--- NOTE | 2021-04-07 06:21 | NUR ---
PT HERE WITH SM BOWEL RESECTION, LAP SITES C/D/I. PAIN 04/07 TREATING WITH TYLENOL AND IBUPROFEN. PT REPORTS HAVING MULTIPLE STOOLS LAST PM THAT ARE COMPLETELY LIQUID, HE STATES STOMACH RUMBLES ALOT. TOLRATING FULL LIQUIDS WITH NO NAUSEA. PT UP AD KARRI.
[2021-04-07 07:40] VITALS: BP 143/86
[2021-04-07] MEDS ORDERED: ROXICODONE5 MG PO (15:05)
[2021-04-07 16:39] VITALS: BP 148/81
[2021-04-07 20:09] VITALS: BP 141/80
--- NOTE | 2021-04-08 05:22 | NUR ---
PATIENT SLEPT WELL DURING THIS SHIFT. PT WITH FOUR ABDOMINAL LAP SITES C/D/I. PT DENIES PAIN/NAUSEA. PT REFUSED TYLENOL AND IBUPROFEN SCHEDULED SAYING HE DID NOT NEED/WANT THEM. PT IS ON ROOM AIR AND IS SALINE LOCKED. PT UP AD KARRI AND VOIDS YELLOW URINE. FREQUENTLY USED ITEMS AND CALL LIGHT WITHIN REACH. SIDERAILS UPX2. WILL CONTINUE TO MONITOR.
[2021-04-08 09:10] VITALS: BP 136/87
[2021-04-08 09:52] VITALS: BP 136/87
--- NOTE | 2021-04-08 11:43 | NUR ---
PATIENT GIVEN DISCHARGE INSTRUCTIONS AND MEDICATIONS REVIEWED. IV REMOVED. PATIENT DENIED ANY PAIN/QUESTIONS/CONCERNS PRIOR TO DISCHARGE. PATIENT AMBULATED OF UNIT WITH PERSONAL BELONGINGS, ACCOMPANIED BY HIS COUSIN TO MEET HIS DAUGHTER AT ENTRANCE OF ER FOR RIDE HOME AT APPROX. 1011.
[2021-04-08 11:47] VITALS: BP 136/87
== END 2021-04-08 10:11 | disposition home or self-care (01) | DRG 331 ==
LOC: M.PRE 05:52 → M.ORTHSURG 06:00 → M.TBA 06:00 → M.PRE 06:02 → M.ORTHSURG 18:23 → M.3W 04-06 19:00
PROVIDERS: ADMIT Surgery; ATTEND Surgery
PROC: 0DBN4ZZ Excision of Sigmoid Colon, Percutaneous Endoscopic Approach (ICD-10-PCS; principal; 2021-04-04)
PROC: 0D1N4ZP Bypass Sigmoid Colon to Rectum, Percutaneous Endoscopic Approach (ICD-10-PCS; principal; 2021-04-04)
PROC: 0DBP4ZZ Excision of Rectum, Percutaneous Endoscopic Approach (ICD-10-PCS; principal; 2021-04-04)
DX: K57.20 Diverticulitis of large intestine with perforation and abscess without bleeding (principal)

== ENCOUNTER → 2021-07-18 | Outpatient (CLI) | payer OTHER ==
[~2021-07-18] MED LIST changes: +ROXICODONE5 MG PO
== END ==
LOC: M.RAD 10:20
PROVIDERS: ATTEND Internal Medicine
DX: M47.812 Spondylosis without myelopathy or radiculopathy, cervical region (principal)